=== PATIENT | female | born 1970 | race Two or more races ===

== ENCOUNTER 2019-07-01 09:09 | Outpatient (CLI) | payer OTHER | END 2019-07-01 09:20 | disposition home or self-care (01) | LOC: SONOGRAMA 09:09 → MAMO-SONO 09:15 → SONOGRAMA 09:20 | DX: D50.8 Other iron deficiency anemias (principal); M25.561 Pain in right knee; M25.562 Pain in left knee; G89.29 Other chronic pain ==